=== PATIENT | female | born 1975 | race Caucasian/White ===

== ENCOUNTER 2018-09-08 12:18 | Emergency (ER) | payer SELFPAY ==
--- NOTE | 2018-09-08 13:51 | ED ---
Head Injury - HPI Summary HPI Summary: Patient is a 43-year-old female who is otherwise healthy presenting to the ED after a trip and fall over her [place] tree this morning. She states she fell and hit the right side of her head, but denies any other injuries. Denies any positive LOC. She denies any memory loss, visual changes, neck pain, headache. She states she feels otherwise well. Denies any confusion. - History Of Current Complaint Chief Complaint: EDHeadInjury Stated Complaint: FALL EYE INJURY Time Seen by Provider: 09/08/18 12:38 Hx Obtained From: Patient Mechanism Of Injury: Direct Blow Onset/Duration: Started Hours Ago Onset of Pain: Hours Severity Currently: Moderate Severity Initially: Moderate Pain Intensity: 0 Pain Scale Used: 0-10 Numeric Location of Head Injury: Temporal Location: Discrete At: - temporal/frontal area Aggravating Factor(s): Movement Alleviating Factor(s): Rest, Ice Associated Signs And Symptoms: Negative - Risk Factors SDH Risk Factor: Negative - Allergies/Home Medications Allergies/Adverse Reactions: Allergies Allergy/AdvReac Type Severity Reaction Status Date / Time Sulfa (Sulfonamide Allergy Rash Verified 09/08/18 12:31 Antibiotics) PMH/Surg Hx/FS Hx/Imm Hx Previously Healthy: Yes - Immunization History Hx Pertussis Vaccination: No Immunizations Up to Date: Yes Infectious Disease History: No Infectious Disease History: Denies: Traveled Outside the [place] in Last 30 Days - Social History Occupation: Employed Full-time Lives: With Family Alcohol Use: Occasionally Hx Substance Use: No Substance Use Type: Reports: None Hx Tobacco Use: No Smoking Status (MU): Unknown if Ever Smoked Review of Systems Negative: Fever, Chills, Fatigue, Skin Diaphoresis Negative: Palpitations, Chest Pain Negative: Shortness Of Breath, Cough Genitourinary: Negative Positive: no symptoms reported, see HPI Negative: Arthralgia, Myalgia Positive: Other - small puncture wound to the R temporal/frontal region of the forehead Neurological: Negative All Other Systems Reviewed And Are Negative: Yes Physical Exam Triage Information Reviewed: Yes Vital Signs On Initial Exam: Initial Vitals Temp Pulse Resp BP Pulse Ox 98.6 F 101 18 123/95 99 09/08/18 12:30 09/08/18 12:30 09/08/18 12:30 09/08/18 12:30 09/08/18 12:30 Vital Signs Reviewed: Yes Appearance: Positive: Well-Nourished Skin: Positive: Warm, Skin Color Reflects Adequate Perfusion, Other - small puncture wound to the R temporal/frontal region of the forehead Head/Face: Positive: Cephalohematoma Eyes: Positive: EOMI Neck: Positive: Supple, No Lymphadenopathy Respiratory/Lung Sounds: Positive: Clear to Auscultation, Breath Sounds Present Cardiovascular: Positive: RRR, Pulses are Symmetrical in both Upper and Lower Extremities Musculoskeletal: Positive: Strength/ROM Intact Neurological: Positive: Speech Normal Psychiatric: Positive: Normal, Affect/Mood Appropriate Diagnostics - Vital Signs Vital Signs Temp Pulse Resp BP Pulse Ox 09/08/18 12:30 98.6 F 101 18 123/95 99 - Laboratory Lab Statement: Any lab studies that have been ordered have been reviewed, and results considered in the medical decision making process. Head Injury Course/Dx Course Of Treatment: On physical examination, there is a large cephalohematoma to the right frontal/temporal region with a small puncture wound. The wound was cleansed thoroughly using normal saline. Antibiotic ointment and Band-Aid applied. CT brain obtained which shows no acute intracranial abnormalities. As patient is otherwise asymptomatic, she will be discharged home with head injury. - Diagnoses Differential Diagnosis/HQI/PQRI: Contusion Provider Diagnoses: Head injury Discharge - Sign-Out/Discharge Documenting (check all that apply): Patient Departure - Discharge Plan Condition: Stable Disposition: HOME Patient Education Materials: Head Injury (ED) Referrals: No Primary Care Phys,NOPCP [Primary Care Provider] - - Billing Disposition and Condition Condition: STABLE Disposition: Home
[2018-09-08 14:05] VITALS: BP 138/86
== END 2018-09-08 14:04 | disposition home or self-care (01) ==
LOC: ED 12:18
DX: S01.93XA Puncture wound without foreign body of unspecified part of head, initial encounter (principal); S09.90XA Unspecified injury of head, initial encounter; W01.0XXA Fall on same level from slipping, tripping and stumbling without subsequent striking against object, initial encounter; Y92.9 Unspecified place or not applicable
CPT/HCPCS: 70450; 99285